=== PATIENT | female | born 1970 | race Caucasian/White ===

== ENCOUNTER 2022-10-18 02:10 | Emergency (ER) | payer SELFPAY ==
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
[2022-10-18 02:52] VITALS: BP 130/79; PULSE 117; RESP 20; TEMP 36.9; BMI 32.6
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
[2022-10-18 03:08] LABS: MANUAL DIFF FLAG NO
--- NOTE | 2022-10-18 03:08 | PC.NURSE ---
Patient refusing to answer assessment questions noting that she only want to talk about what she drank today and about leaving. ED provider informed PT that she was sectioned. Patient now sleeping, unlabored respirations and even chest wall rising noted.
[2022-10-18 03:09] LABS: Basophils Percent Auto 0.5 % (0-2); Eosinophils Absolute Auto 0.1 X10*3/uL (0.0-0.4); Eosinophils Percent Auto 0.9 % (0-4); Hematocrit 36.3 % (37.0-47.0); Hemoglobin 11.9 g/dl (12.0-16.0); Imm Gran Abs Auto 0.02 X10*3/uL (0.00-0.03); Imm Gran Pct Auto 0.3 % (0.0-0.4); Lymphocytes Absolute Auto 1.3 X10*3/uL (1.2-4.9); Lymphocytes Percent Auto 20.3 % (20-40); Mean Corpuscular HGB Conc 32.8 g/dl (31.0-35.0); Mean Corpuscular Hemoglobin 29.5 pg (27.0-33.0); Mean Corpuscular Volume 90.1 fL (80.0-98.0); Mean Platelet Volume 9.4 fL (9.4-12.3); Monocytes Absolute Auto 0.5 X10*3/uL (0.1-1.2); Monocytes Percent Auto 6.9 % (2-11); Neutrophils Absolute Auto 4.6 x10*3/uL (2.0-8.3); Neutrophils Percent Auto 71.1 % (45-73); Platelet Count 242 X10*3/uL (160-400); Red Blood Count 4.03 X10*6/uL (4.20-5.50); Red Cell Distribution Width 14.2 % (11.0-16.0); White Blood Count 6.5 X10*3/uL (4.8-10.8)
[2022-10-18 03:12] LABS: Appearance Urine Clear; Color Urine Yellow; Glucose Urine UA Negative (Negative); Leukocyte Esterase Urine Trace (Negative); Nitrite Urine Negative (Negative); PH 5.5 (5.0-9.0); Specific Gravity - Urine <= 1.005 (1.005-1.025); UMIC TRIGGER UACC YES; Urine Blood Trace (Negative); Urine Ketones Negative (Negative); Urine Protein Negative (Neg-Trace)
[2022-10-18 03:14] LABS: Bacteria Urine None Seen (None Seen); Hyaline Casts Urine 0-2 /LPF (0-2); RBC Urine 0-2 /HPF (0-2); Squamous Epithelial Cell Urine 0-2 /HPF (0-2); WBC Urine 0-5 /HPF (0-5)
[2022-10-18 03:21] LABS: Amphetamine Screen Urine Not Detected (Not Detect); Anion Gap 15 (12-20); Barbiturates, Urine Not Detected (Not Detect); Benzodiazepines Screen Urine Not Detected (Not Detect); Blood Urea Nitrogen 11 mg/dL (9-16); Calcium 8.9 mg/dL (8.4-10.2); Cannabinoid Screen Urine Not Detected (Not Detect); Carbon Dioxide 24 mmol/L (22-29); Chloride 112 mmol/L (96-108); Cocaine Screen Urine Not Detected (Not Detect); Estimated Glomerular Filt Rate > 60; Fentanyl, urine Not Detected (Not Detect); Glucose Random 104 mg/dL (60-115); Opiate Screen Urine Not Detected (Not Detect); Phencyclidine Screen Urine Not Detected (Not Detect); Potassium 3.7 mmol/L (3.3-5.1); Sodium 147 mmol/L (135-145)
[2022-10-18 03:26] LABS: Ethanol 188 mg/dL
[2022-10-18 04:57] VITALS: RESP 16
[2022-10-18 05:45] VITALS: RESP 16
--- NOTE | 2022-10-18 08:40 | PC.NURSE ---
care team at the bedside
--- NOTE | 2022-10-18 10:33 | PHA.MEDREC ---
Addendum entered by Aamir Salazar 10/18/22 10:35: However, patient would not name the pharmacy they fill at and are originally from [place]. Original Note: Pharmacy Consult ? Medication Reconciliation Pharmacy has completed the medication reconciliation. Utilized [facility]. Patient states they take Lipitor 20mg at bedtime and vitamin B1. Mentioned they were taking a blood pressure medication, but are no longer taking it and finished it.
== END 2022-10-18 11:35 | disposition home or self-care (01) ==
PROVIDERS: Emergency Provider Emergency Medicine
DX: F10.920 Alcohol use, unspecified with intoxication, uncomplicated (principal); Y90.6 Blood alcohol level of 120-199 mg/100 ml; Z79.02 Long term (current) use of antithrombotics/antiplatelets; Z79.899 Other long term (current) drug therapy
CPT/HCPCS: 36415; 80048; 80307; 81001; 85025; 99284; S9485